=== PATIENT | male | born 1975 | race Caucasian/White ===

== ENCOUNTER → 2020-08-17 | Day surgery (SDC) | payer OTHER ==
[~2020-08-17] MED LIST: NOHOMEMEDICATIONS; TRAMADOL 50 MG50 MG PO
--- NOTE | 2020-08-17 14:40 | OP ---
[address] [address] OPERATIVE REPORT Name: CLARISAJACQUELIN Agudelo Room: [facility]#: [id number] Admission: 08/17/20 Attend Phys: Bianca Joseph DO Discharge: Date of : 73 Report #: [id number] THIS REPORT FOR: //name// cc: JOSE R SMITH PA-C, MASON PA-C ~ CC: Bianca SMITH DATE OF SERVICE: 08/17/2020 PREPROCEDURE DIAGNOSIS: Umbilical hernia. POSTPROCEDURE DIAGNOSIS: Umbilical hernia. FINDINGS: 1.2 x 1.2 cm umbilical defect, which was easily reducible. SURGEON: Bianca Joseph DO COSURGEON: Omer Ferris, PGY-1. PRODUCTION CONTROL EXPEDITER: KAYODE Pretty. PROCEDURE PERFORMED: Umbilical hernia repair with mesh. ANESTHESIA: LMA and local. ESTIMATED BLOOD LOSS: 3 mL. DRAINS: None. SPECIMENS: None. COMPLICATIONS: None. CONDITION: Stable. DISPOSITION: PACU to home. IMPLANT: Small [place] [place] mesh. HISTORY OF PRESENT ILLNESS: The patient is a very pleasant 45-year-old gentleman who presented to my office with complaint of an enlarging bulge in his umbilicus, which was causing him pain. On physical exam, he had an easily reducible umbilical hernia. He was then consented for repair of this area with possible mesh. Risks discussed included bleeding, infection, pain, scar formation, injury to bowel, mesh complications, recurrence of the hernia and [facility] [address] [place] [address] OPERATIVE REPORT Name: JACQUELIN MCKENNA Magnus Room: [facility].#: [id number] Admission: 08/17/20 Attend Phys: Bianca Joseph DO Discharge: Date of : 73 Report #: [id number] risks of general anesthesia. The patient understood these risks and elected to proceed. DESCRIPTION OF PROCEDURE: The patient was brought to the operating room. He was laid supine on the operating room table. SCDs were placed on bilateral lower extremities. Ancef was given in the perioperative period. General LMA anesthesia was induced by Anesthesia without difficulty. Abdomen was prepped and draped in standard sterile fashion. Timeout was performed to verify patient and procedure. A 10 mL of 0.5% Marcaine were injected in the infraumbilical area. Curvilinear infraumbilical incision was made with #15 blade. Cautery was used for hemostasis. Cautery was then used to dissect down to the hernia sac. It was quite superficial to the umbilicus and was easily visualized. It was gently elevated while it was circumferentially dissected free from the umbilical stalk. The hernia sac was then carefully transected from the umbilical stalk using cautery. The hernia sac was then easily reduced into the abdomen. Finger was introduced into the defect to assure that there were no ava-incisional adhesions or further defects, none were identified. We remained in the preperitoneal plane. A finger was then used to gently extend the preperitoneal plane in anticipation of deployment of the mesh. The hernia defect was measured and measured approximately 1.2 x 1.2 cm. A small [place] mesh was brought onto the field and was easily deployed within the defect. Care was taken to assure that the mesh completely deployed within the abdomen and that no intra-abdominal contents were caught between the mesh and the anterior abdominal wall. Mesh was then sutured into place on the left and right sides of the mesh using an inverted U stitch with a 0 Prolene. Tails of the mesh were then cut and handed off. The defect of the hernia was then closed including the mesh using 2 interrupted inverted stitches of 0 Prolene with excellent approximation of the hernia defect. An additional 10 mL of 0.5% Marcaine were injected in the fascia. The umbilical stump was then reapproximated to the underlying fascia using 3-0 Vicryl. Wound was then closed in a layered fashion using deep and superficial stitches of 3-0 Vicryl in inverted interrupted fashion. Skin wound was closed with running 4-0 Monocryl. A total of 30 mL of 0.5% Marcaine were used to anesthetize the wound. Wound was then cleansed and covered with Dermabond. The patient was then allowed to awaken from anesthesia, was extubated and transported to the recovery room with no further difficulties. Counts were correct x 2 at the conclusion of the case. <ELECTRONICALLY SIGNED> By: Bianca Joseph DO 08/17/20 [id number] [id number] Joseph DO /kourtney
== END | disposition home or self-care (01) ==
LOC: M.SUR 06:18
PROVIDERS: ATTEND Surgery
DX: K42.9 Umbilical hernia without obstruction or gangrene (principal); Z98.890 Other specified postprocedural states; Z79.899 Other long term (current) drug therapy; Z88.8 Allergy status to other drugs, medicaments and biological substances; Z91.041 Radiographic dye allergy status